=== PATIENT | male | born 1985 | race Two or more races ===

== ENCOUNTER 2017-08-09 23:03 | Emergency (ER) | payer OTHER ==
[~2017-08-09] VITALS: Ht 177.8 cm; Wt 103.3 kg
[2017-08-09] MEDS ORDERED: PROMETHAZINE 25MG TABLET PO STA (23:53)
[2017-08-10] MEDS ORDERED: KETOROLAC 30 MG/1 ML IM ONE
[2017-08-10] MEDS ORDERED: DIPHENHYDRAMINE 25 MG CAPSULE PO ONE
[2017-08-10] MEDS ORDERED: DIPHENHYDRAMINE 50 MG CAPSULE PO ONE
[2017-08-10] MEDS ORDERED: PROMETHAZINE 25 MG/ML, 1ML ONE (00:02)
[2017-08-10] MEDS ORDERED: DIPHENHYDRAMINE 50 MG CAPSULE ONE (00:02)
[2017-08-10] MEDS ORDERED: KETOROLAC 30 MG/1 ML ONE (00:03)
[2017-08-10] MEDS ORDERED: PROMETHAZINE 25MG TABLET ONE (00:11)
[2017-08-10 00:13] VITALS: BP 118/70
== END 2017-08-10 00:58 | disposition home or self-care (01) ==
LOC: ED 23:38
DX: G44.039 Episodic paroxysmal hemicrania, not intractable (principal)
CPT/HCPCS: 70450; 96372; 99284; J1885; Q0163; Q0169